=== PATIENT | female | born 1985 | race Hispanic/Latino ===

== ENCOUNTER 2018-09-13 00:04 | Emergency (ER) | payer SELFPAY ==
[2018-09-13 00:12] VITALS: BP 127/83; PULSE 91; RESP 16; TEMP 36.9; O2SAT 100; BMI 32.3
--- NOTE | 2018-09-13 00:14 | ED.BACK ---
HPI - Back Pain/Injury General Chief Complaint: Back Pain/Injury Stated Complaint: back pain in kidney area Time Seen by Provider: 09/13/18 00:05 Source: patient and family Mode of arrival: ambulatory Limitations: no limitations History of Present Illness HPI Narrative: 32-year-old nonsmoker with history of GERD and asthma presents with a chief complaint of left flank pain and abnormal sensation with urinating. She admits to nausea and some vomiting but denies any diarrhea, fever or chills. She has had a history of urinary tract infection and pyelonephritis and states this feels similar. Her pain is worse when she moves and improves with rest Related Data Home Medications Medication Instructions Recorded Confirmed VIT#96/FERROUS FUM/FA Q DAY #0 05/08/11 ( Tablet) albuterol sulfate [Ventolin HFA] 1 puff INH #0 10/16/16 ibuprofen [Advil] PO Q4HP PRN #0 11/14/16 Previous Rx's Medication Instructions Recorded omeprazole magnesium [Prilosec OTC] 20 mg PO QDAY #30 10/17/16 ketorolac 10 mg PO Q6H PRN #14 tab 09/13/18 ondansetron 4 mg PO TID-QID PRN #10 tab 09/13/18 Allergies Allergy/AdvReac Type Severity Reaction Status Date / Time No Known Allergies Allergy Unknown Verified 09/13/18 00:12 Review of Systems Review of Systems All systems reviewed & are unremarkable except as noted in HPI and below Constitutional Denies chills, Denies fever(s), Denies lethargy and Denies weakness Eyes Denies change in vision, Denies eye discharge, Denies irritation and Denies loss of vision ENT Ears, Nose, Mouth, and Throat: Denies change in voice, Denies neck pain and Denies sore throat Cardiovascular Denies chest pain, Denies irregular heart rhythm, Denies lightheadedness, Denies palpitations, Denies dyspnea, Denies dyspnea on exertion and Denies orthopnea Respiratory Denies cough, Denies dyspnea, Denies dyspnea on exertion and Denies wheezing Gastrointestinal Gastrointestinal: Denies abdominal pain, Denies change in bowel habits, Denies diarrhea, Denies nausea and Denies vomiting Genitourinary Reports hematuria, Reports dysuria, Reports flank pain, Denies urinary incontinence and Denies urinary urgency Musculoskeletal Denies neck pain Integumentary/Breasts Denies pruritus, Denies erythema, Denies rash and Denies wounds Neurologic Denies confusion, Denies loss of vision and Denies weakness Psychiatric Denies anxiety, Denies confusion, Denies depression, Denies homicidal ideation and Denies suicidal ideation Endocrine Denies palpitations Hematologic/Lymphatic Denies easy bruising Allergic/Immunologic Denies wheezing Exam Narrative Exam Narrative: 32-year-old female presents with significant other and no obvious distress Initial Vital Signs Initial Vital Signs: Vital Signs Temperature 98.4 F 09/13/18 00:12 Pulse Rate 91 H 09/13/18 00:12 Respiratory Rate 16 09/13/18 00:12 Blood Pressure 127/83 09/13/18 00:12 Pulse Oximetry 100 09/13/18 00:12 Const General: cooperative and well developed Nutritional Appearance: well nourished Orientation: alert, awake, oriented x3 and not confused HENOK Head: normocephalic and atraumatic Ears: external ears normal and TM's normal bilaterally Nose: external nose normal and No nasal discharge Face and sinus: sinuses nontender, face symmetric, no sinus tenderness and No dry mucous membranes Mouth: oral mucosae normal and moist mucous membranes Teeth and gingiva: dentition normal Throat: tonsils normal and uvula midline Eyes General: appearance normal, both eyes and all related structures Eyelids: eyelids normal Conjunctivae: conjunctivae normal Sclera: sclerae normal Pupils: PERRL EOM: EOM intact bilaterally Chest Chest: normal inspection of the chest Resp Effort & Inspection: normal respiratory effort, able to speak in complete sentences, no respiratory distress and no use of accessory muscles Auscultation: clear to auscultation bilaterally, no rales, no rhonchi and no wheezes Cardio Rate: regular rate Rhythm: regular rhythm Heart Sounds: no click, no gallops, no murmurs and no rubs Pulses: normal peripheral pulses GI Inspection: non-distended Palpation: soft, no hepatosplenomegaly, No guarding, No pulsatile mass and No tender Auscultation: normal bowel sounds Back/Spine/Pelvis Back: CVA tenderness Skin General: no rashes or lesions noted, No jaundice and No petechiae Neuro General: alert, oriented x3, gait normal and no focal motor deficits Speech: speech normal Psych Appearance: grossly normal and well kempt Course Orders Ordered: ED Orders 09/13/18 00:11 Urinalysis and Microscopic Stat 09/13/18 00:54 CT kidney ureter bladder (KUB) Stat Discontinued Medications Ketorolac Tromethamine (Toradol) 60 mg IM NOW ONE Stop: 09/13/18 00:25 Last Admin: 09/13/18 00:29 Dose: 60 mg Ondansetron HCl (Zofran Odt Prepack) 1 bottle MISC SEEINSTR ONE Stop: 09/13/18 00:25 Last Admin: 09/13/18 00:29 Dose: 1 bottle Reevaluation(s) Reevaluation #1: patient much more comfortable after toradol Vital Signs - 8 hr 09/13/18 00:12 Temperature 98.4 F Pulse Rate 91 H Respiratory Rate 16 Blood Pressure 127/83 Pulse Oximetry 100 MDM - Back Pain/Injury Differential Diagnosis Differential diagnosis: Likely renal colic and pyelonephritis Medical Records Attestation: I reviewed the patient's medical records. Lab Data Attestation: I reviewed the patient's lab results. Lab Results 09/13/18 Range/Units 00:11 Urine Color Light pink Urine Appearance Clear Urine pH 7.5 (4.5-8.0) Ur Specific [place] 1.015 (1.000-1.035) Urine Protein Trace H (Negative) Urine Glucose (UA) Negative (Normal) g/dL Urine Ketones Negative (NEGATIVE) Urine Occult Blood 3+ H (Negative) Urine Nitrate Negative (Negative) Urine Bilirubin Negative (NEGATIVE) Urine Urobilinogen 0.2 (0.2) E.U./dL Ur Leukocyte Esterase Negative (NEGATIVE) Urine RBC 30-100/hpf H (0-5/HPF) Urine WBC 0-1/hpf (0-5/HPF) Ur Squamous Epith Cells 1-5 /hpf Urine Bacteria None seen (None) Urine Sperm 2+ Ur Culture Indicated? Cult not indicated Micro UA Comment * Point of Care Testing Test Results Negative Imaging Data CT scan - abdomen: Radiologist's impression: No explanation for back/flank pain MDM Narrative Medical decision making narrative: flank pain with hematuria and no sign of infection are highly suspicious for passed stone Discharge Plan Departure Patient Disposition: Home Clinical Impression: Acute flank pain, Benign hematuria Instructions: DI for Flank Pain Activity Restrictions/Additional Instructions: *You have been diagnosed with [ acute flank pain with hematuria, possible kidney stone ] *What to do: *Take medications as directed *Follow up with your primary care provider in 2-3 days, call for an appointment. Let them know you were seen in the Emergency Department and that we ask that you be seen in follow up *Return to ER if you should have any new, worsening or concerning symptoms, such as [ increasing pain, persistent vomiting, fever over 101 F, other bothersome symptoms] Prescriptions: New ketorolac 10 mg tablet 10 mg PO Q6H PRN (Reason: pain) Qty: 14 RF: 0 ondansetron 4 mg tablet,disintegrating 4 mg PO TID-QID PRN (Reason: nausea and vomiting) Qty: 10 RF: 0 No Action VIT#96/FERROUS FUM/FA ( Tablet) Q DAY Qty: 0 RF: 0 albuterol sulfate [Ventolin HFA] 90 MCG/PUFF HFA aerosol inhaler 1 puff INH Qty: 0 RF: 0 omeprazole magnesium [Prilosec OTC] 20 MG tablet,delayed release (DR/EC) 20 mg PO QDAY Qty: 30 RF: 0 ibuprofen [Advil] 200 mg Tablet PO Q4HP PRNQty: 0 RF: 0
[2018-09-13 00:21] LABS: Bacteria Urine None Seen
[2018-09-13 00:24] LABS: Appearance Urine UA CLEAR; Bilirubin Urine UA NEGATIVE (NEGATIVE); Glucose Urine UA NEGATIVE (Normal); Ketones Urine UA NEGATIVE (NEGATIVE); Leukocyte Esterase Urine UA NEGATIVE (NEGATIVE); Nitrite Urine UA NEGATIVE (Negative); Occult Blood Urine UA 3+ (Negative); Protein Urine UA TRACE (Negative); Specific Gravity Urine UA 1.015 (1.000-1.035); Urobilinogen Urine UA 0.2 E.U./dL (0.2); pH Urine UA 7.5 (4.5-8.0)
[2018-09-13 00:27] LABS: Color Urine UA LIGHT PINK
[2018-09-13] MEDS: KETOROLAC 60 MG/2 ML VIAL IM (00:29)
[2018-09-13] MEDS: ONDANSETRON 4 MG ODT PREPACK 1 BOTTLE MISC (00:29)
[2018-09-13 00:43] LABS: RBC Urine 30-100/HPF (0-5/HPF); Squamous Epithelial Cell Urine 1-5 /HPF; WBC Urine 0-1/HPF (0-5/HPF)
[2018-09-13 00:44] LABS: Sperm Urine 2+
[2018-09-13 00:45] LABS: Culture Indicated Urine Cult Not Indicated
--- NOTE | 2018-09-13 00:54 | DI.CT.S_ITS ---
PROCEDURE: CT KIDNEY URETER BLADDER (KUB) INDICATIONS: flank pain TECHNIQUE: Noncontrast 5 mm thick sections acquired from the diaphragms to the symphysis. 5 mm thick coronal and sagittal reformats were then performed. For radiation dose reduction, the following was used: automated exposure control, adjustment of mA and/or kV according to patient size. COMPARISON: [facility], CT, CT KUB, 07/16/2018, 19:33. FINDINGS: Image quality: Excellent. Lung bases: Lung bases are clear. Heart size is normal. Urinary system: Both kidneys are normal in size. No kidney stones. No hydronephrosis or perinephric fat stranding. Both ureters appear non-dilated throughout their expected courses. Bladder wall thickness is normal; no calcified bladder stones. Other solid organs: Liver is normal in size. Gallbladder is partially contracted. Pancreas is normal in contours. Spleen is normal in size. No adrenal nodules. Peritoneum and bowel: Unenhanced bowel loops demonstrate normal wall thickness and caliber. No free fluid or air. Nodes and vessels: No retroperitoneal or mesenteric adenopathy by size criteria. Aorta and inferior vena cava are normal in caliber. Abdominal wall: There is a 30 mm diameter fat-containing umbilical hernia which demonstrates fat stranding , as before. Pelvis: No free pelvic fluid. No inguinal hernias or adenopathy. Bones: No suspicious bony lesions. No vertebral body compression fractures. IMPRESSION: 1. No change in fat stranding within the fat containing umbilical hernia which may indicate incarceration/fat necrosis. 2. Appendix not seen. No evidence of appendicitis. 3. Concordant with preliminary interpretation. Dictated by: Isaiah Dias M.D. on 09/13/2018 at 8:25 Approved by: Isaiah Dias M.D. on 09/13/2018 at 8:27
[2018-09-13 02:02] VITALS: BP 113/80; PULSE 70; RESP 18; O2SAT 100
== END 2018-09-13 02:02 | disposition home or self-care (01) ==
PROVIDERS: Emergency Provider Emergency Medicine
DX: N02.9 Recurrent and persistent hematuria with unspecified morphologic changes (principal); R10.9 Unspecified abdominal pain
CPT/HCPCS: 74176; 81001; 81025; 96372; 99282; 99284; J1885

== ENCOUNTER 2023-12-27 20:43 | Emergency (ER) | payer SELFPAY ==
[2023-12-27 21:04] VITALS: BP 138/82; PULSE 73; RESP 18; TEMP 36.9; O2SAT 99; BMI 33.7
[2023-12-27 22:19] LABS: RBC Urine None Seen (0-5/HPF); Urine Volume 10mL (spun)
[2023-12-27 22:20] LABS: Bacteria Urine Many (>30); Culture Indicated Urine Cult Not Indicated; Squamous Epithelial Cell Urine 0-1 /HPF (0-5/HPF); WBC Urine 10-30/HPF (0-5/HPF)
--- NOTE | 2023-12-27 22:49 | ED.GENADULT ---
HPI - General Adult General Chief complaint: Urogenital-Female Stated complaint: states pain in kidneys Time Seen by Provider: 12/27/23 22:10 Source: patient Mode of arrival: Ambulatory History of Present Illness HPI narrative: 38-year-old female presents for suprapubic discomfort, urinary frequency, low back pain for 2 days. Patient states that she was concerned that she may be developing a kidney infection and while she be evaluated. Denies nausea, vomiting, fevers, chills, any other complaints at this time. Related Data Home Medications Medication Instructions Recorded Confirmed VIT#96/FERROUS FUM/FA Q DAY ##0 05/08/11 ( Tablet) albuterol sulfate 90 mcg/actuation 1 puff INH ##0 10/16/16 aerosol inhaler (Ventolin HFA) ibuprofen 200 mg tablet (Advil) PO Q4HP PRN ##0 11/14/16 Previous Rx's Medication Instructions Recorded omeprazole magnesium 20 mg 20 mg PO QDAY ##30 10/17/16 tablet,delayed release (Prilosec OTC) ketorolac 10 mg tablet 10 mg PO Q6H PRN pain #14 tabs 09/13/18 ondansetron 4 mg disintegrating 4 mg PO TID-QID PRN nausea and 09/13/18 tablet vomiting #10 tabs cephalexin 500 mg capsule 500 mg PO Q12H #10 caps 12/28/23 Allergies Allergy/AdvReac Type Severity Reaction Status Date / Time No Known Allergies Allergy Unknown Verified 09/13/18 00:12 Review of Systems Review of Systems Narrative: Negative except as noted above Exam Initial Vital Signs Initial Vital Signs: Vital Signs Temperature 98.4 F 12/27/23 21:04 Pulse Rate 73 12/27/23 21:04 Respiratory Rate 18 12/27/23 21:04 Blood Pressure 138/82 12/27/23 21:04 Pulse Oximetry 99 12/27/23 21:04 Oxygen Delivery Method Room Air 12/27/23 21:04 Const: Awake, alert, no acute distress, nontoxic appearing Cardiac: regular rate, regular rhythm RESP: unlabored, clear bilaterally, no wheezing GI: Atraumatic, soft, nontender, nondistended, no rebound, no guarding MSK back: No midline tenderness, no CVA tenderness bilaterally Skin: Warm, Dry, intact, no rashes Neuro: AO x3, CN II-XII grossly intact, moves all extremities Course Orders Ordered: Discontinued Medications Cephalexin HCl (Cephalexin 250 Mg Capsule) 500 mg PO NOW ONE Stop: 12/28/23 00:26 Last Admin: 12/28/23 00:35 Dose: 500 mg Documented By: MAE Ondansetron HCl (Ondansetron 4 Mg/2 Ml Inj) 4 mg IV NOW PRN PRN Reason: Nausea And Vomiting Ondansetron HCl (Ondansetron 4 Mg Odt) 4 mg SL NOW PRN PRN Reason: Nausea And Vomiting Vital Signs Vital signs: Vital Signs - 8 hr 12/27/23 21:04 Temperature 98.4 F Pulse Rate 73 Respiratory Rate 18 Blood Pressure 138/82 Pulse Oximetry 99 Oxygen Delivery Method Room Air Medical Decision Making Lab Data Labs: Lab Results 12/27/23 12/27/23 Range/Units 21:39 23:48 Urine RBC None seen None seen (0-5/HPF) Urine WBC 10-30/hpf H 1-5/hpf D (0-5/HPF) Ur Squamous Epith Cells 0-1 /hpf 0-1 /hpf (0-5/HPF) Urine Bacteria Many (>30) H Few (2-10) H D (None) Ur Culture Indicated? Cult not indicated Specimen cultured Vol Urine Centrifuged 10ml (spun) 10ml (spun) Point of Care Testing Test Results Negative Urine Dip Bedside Urine Glucose Negative Bedside Urine Bilirubin - Negative Bedside Urine Ketone - Negative Urine Specific [place] 1.010 Bedside Urine Occult Blood + Bedside Urine pH 6.0 Bedside Urine Protein - Negative Bedside Urine Urobilinogen - Negative Bedside Urine Nitrite - Negative Bedside Urine Leukocytes + 70 Esterase Point of care testing: Point of Care Testing Test Results Negative Urine Dip Bedside Urine Glucose Negative Bedside Urine Bilirubin - Negative Bedside Urine Ketone - Negative Urine Specific [place] 1.010 Bedside Urine Occult Blood + Bedside Urine pH 6.0 Bedside Urine Protein - Negative Bedside Urine Urobilinogen - Negative Bedside Urine Nitrite - Negative Bedside Urine Leukocytes + 70 Esterase MDM Narrative Medical decision making narrative: Suprapubic discomfort and urinary frequency suggestive of urinary tract infection. Patient is reporting low back pain and is concerned that infection may spread to her kidneys. There is absolutely no CVA tenderness on either side bilaterally, patient's pain is located in the lower lumbar region above her buttocks. Patient has no fevers or chills or any other signs or symptoms of pyelonephritis. Patient counseled on urinary results and discharge from the ER with antibiotics. Initial dose provided in the emergency department since pharmacies are currently closed. Discharge Plan Departure Patient Disposition: Home Clinical Impression: Urinary tract infection Instructions: DI for Urinary Tract Infection (UTI) Activity Restrictions/Additional Instructions: Make sure to drink plenty of fluids. When he use the restroom white from front to back and up from back to front. If you have sexual intercourse make sure to urinate immediately afterwards. Follow up as needed with your primary care physician. Prescriptions: New cephalexin 500 mg capsule 500 mg PO Q12H Qty: 10 0RF No Action VIT#96/FERROUS FUM/FA ( Tablet) Q DAY Qty: 0 albuterol sulfate [Ventolin HFA] 90 MCG/PUFF HFA aerosol inhaler 1 puff INH Qty: 0 omeprazole magnesium [Prilosec OTC] 20 MG tablet,delayed release (DR/EC) 20 mg PO QDAY Qty: 30 0RF ibuprofen [Advil] 200 mg Tablet PO Q4HP PRNQty: 0 ketorolac 10 mg tablet 10 mg PO Q6H PRN (Reason: pain) Qty: 14 0RF ondansetron 4 mg tablet,disintegrating 4 mg PO TID-QID PRN (Reason: nausea and vomiting) Qty: 10 0RF Stand Alone Forms: Patient Portal/API, Work Release Note
[2023-12-28 00:16] LABS: Bacteria Urine Few (2-10); Culture Indicated Urine Specimen Cultured; RBC Urine None Seen (0-5/HPF); Squamous Epithelial Cell Urine 0-1 /HPF (0-5/HPF); Urine Volume 10mL (spun); WBC Urine 1-5/HPF (0-5/HPF)
[2023-12-28] MEDS: cephALEXin 250 MG CAPSULE 500 MG PO (00:35)
== END 2023-12-28 00:39 | disposition home or self-care (01) ==
PROVIDERS: Emergency Provider Emergency Medicine
DX: N39.0 Urinary tract infection, site not specified (principal)
CPT/HCPCS: 81003; 81015; 81025; 87077; 87086; 87186; 99283

== ENCOUNTER 2024-11-25 23:13 | Emergency (ER) | payer SELFPAY ==
[2024-11-25 23:25] VITALS: BP 130/81; PULSE 71; RESP 16; TEMP 36.9; O2SAT 99; BMI 33.3
== END 2024-11-26 00:10 | disposition left against medical advice (07) ==
PROVIDERS: Emergency Provider Student in an Organized Health Care Education/Training Program
DX: R51.9 Headache, unspecified (principal)
CPT/HCPCS: 99281